=== PATIENT | male | born 1980 | race Two or more races ===

== ENCOUNTER 2025-03-22 09:04 | Outpatient (CLI) | payer OTHER ==
[2025-03-22 11:14] LABS: URINE APPEARANCE CLEAR; URINE BILIRRUBIN NEGATIVE (NEGATIVE); URINE BLOOD NEGATIVE; URINE COLOR YELLOW; URINE GLUCOSE NEGATIVE (NEGATIVE); URINE KETONE NEGATIVE (NEGATIVE); URINE LEUKOCYTE NEGATIVE; URINE NITRATE NEGATIVE; URINE PROTEIN NEGATIVE (NEGATIVE); URINE RBC 1.7 uL (0.0-20.8); URINE UROBILINOGEN 0.2 E.U./dl
[2025-03-22 11:15] LABS: URINE BACTERIA 9.7 uL (0.0-1933); URINE CAST 0.14 uL (0.0-1.40); URINE EPITHELIAL CELLS 2.6 uL (0.0-38.8); URINE WBC 1.4 uL (0.0-23.2)
[2025-03-22 11:55] LABS: CALCIUM 9.5 mg/dL (8.5-10.1); CREATININE SERUM 0.98 mg/dL (0.70-1.30); GFR 82.34; POTASSIUM 4.52 mEq/L (3.5-5.1); PROSTATIC SPECIFIC ANTIGEN 0.687 NG/ML (0.010-4.00)
== END 2025-03-22 09:07 | disposition home or self-care (01) ==
LOC: LAB 09:04
PROVIDERS: ATTEND Urology
DX: N41.0 Acute prostatitis (principal); N40.0 Benign prostatic hyperplasia without lower urinary tract symptoms; Z12.5 Encounter for screening for malignant neoplasm of prostate

== ENCOUNTER 2025-09-25 08:41 | Outpatient (CLI) | payer OTHER ==
[2025-09-25 09:50] LABS: BASO % 0.5 % (0.1-1.2); EOS # 0.13 (0.04-0.54); EOS % 2.1 % (0.7-7.0); LYMPH # 1.98 (1.18-3.74); LYMPH % 32.4 % (19.3-53.1); MEAN PLATELET VOLUME 10.30 fl (9.4-12.4); MONO # 0.45 (0.24-0.82); MONO % 7.4 % (4.7-12.5); NEUT # 3.50 (1.56-6.13); NEUT % 57.1 % (34.0-71.1); RED CELL DISTRIBUTION WIDTH 12.3 % (11.6-14.4)
[2025-09-25 10:05] LABS: URINE APPEARANCE Clear; URINE BILIRRUBIN Negative (NEGATIVE); URINE BLOOD Negative; URINE COLOR Yellow; URINE GLUCOSE Negative (NEGATIVE); URINE KETONE Negative (NEGATIVE); URINE LEUKOCYTE Negative; URINE NITRATE Negative; URINE PROTEIN Negative (NEGATIVE); URINE UROBILINOGEN 0.2 E.U./dl
[2025-09-25 10:09] LABS: URINE BACTERIA 1.1 uL (0.0-1933); URINE CAST 0.00 uL (0.0-1.40); URINE EPITHELIAL CELLS 0.6 uL (0.0-38.8); URINE RBC 0.1 uL (0.0-20.8); URINE WBC 1.2 uL (0.0-23.2)
[2025-09-25 10:41] LABS: ALT/SGPT 24.0 U/L (12-78); AST/SGOT 12.0 U/L (15-37); BILIRUBIN TOTAL 0.58 mg/dL (0.3-1.2); BUN CREA RATIO 11.0 (7.0-25.0); CHOL HDL RATIO 4.0 (0-5.0); CREATININE SERUM 0.9 mg/dL (0.70-1.30); GFR 90.84; GLOBULINA 2.8 G/DL (2.4-3.5); GLUCOSE FASTING 103.0 mg/dL (65-100); HDL 49.0 mg/dl (40-60); LDL 116.0 mg/dl (0-130); OSMOLALITY SERUM 286.0 MOSM/KG (275-295); PROSTATIC SPECIFIC ANTIGEN 0.677 NG/ML (0.010-4.00); TSH 3.27 uIU/mL (0.358-3.74); VLDL 29.0 (0-39)
== END 2025-09-25 23:00 | disposition home or self-care (01) ==
LOC: LAB 08:41
PROVIDERS: ATTEND General Practice
DX: E55.9 Vitamin D deficiency, unspecified (principal); I11.9 Hypertensive heart disease without heart failure; Z12.11 Encounter for screening for malignant neoplasm of colon; R30.0 Dysuria; E06.9 Thyroiditis, unspecified; E11.8 Type 2 diabetes mellitus with unspecified complications; E78.2 Mixed hyperlipidemia; E16.2 Hypoglycemia, unspecified; D64.9 Anemia, unspecified; N40.0 Benign prostatic hyperplasia without lower urinary tract symptoms; R23.3 Spontaneous ecchymoses; K21.9 Gastro-esophageal reflux disease without esophagitis

== ENCOUNTER 2025-11-03 07:43 | Outpatient (CLI) | payer OTHER | END 2025-11-03 07:46 | disposition home or self-care (01) | LOC: SONOGRAMA 07:43 | PROVIDERS: ATTEND General Practice | DX: E06.9 Thyroiditis, unspecified (principal) ==